=== PATIENT | male | born 1950 | race Caucasian/White ===

== ENCOUNTER 2022-02-06 01:31 | Emergency (ER) | payer MEDICAID ==
[~2022-02-06] VITALS: Ht 170.2 cm; Wt 72.6 kg
[2022-02-06 02:00] VITALS: BP_SYST 134
[2022-02-06] MEDS ORDERED: ASPI-1393 PO (02:11)
[2022-02-06] MEDS ORDERED: LIP20 PO (02:11)
[2022-02-06] MEDS ORDERED: CLOP75TA32 PO (02:11)
[2022-02-06 02:30] LABS: BASOPHILS # (AUTO) 0.1 K/uL (0.0-0.2); BASOPHILS % (AUTO) 1.1 % (0.0-2.0); EOSINOPHILS # (AUTO) 0.2 K/uL (0.0-0.4); EOSINOPHILS % (AUTO) 1.9 % (0.0-4.0); HEMATOCRIT 39.4 % (36-54); HEMOGLOBIN 13.3 g/dL (14.0-18.0); LYMPHOCYTES # (AUTO) 1.8 K/uL (1.0-5.5); MEAN CORPUSCULAR HEMOGLOBIN 29 pg (27-31); MEAN CORPUSCULAR HGB CONC 34 % (32-36); MEAN CORPUSCULAR VOLUME 85 fL (79.0-98.0); MONOCYTES # (AUTO) 0.8 K/uL (0.0-1.0); MONOCYTES % (AUTO) 8.8 % (1.7-9.3); NEUTROPHILS # (AUTO) 6.6 K/uL (1.8-7.7); NEUTROPHILS % (AUTO) 69.2 % (40.0-70.0); PLATELET COUNT (AUTO) 282 K/uL (130-430); RED BLOOD CELL COUNT(AUTO) 4.64 MIL/uL (4.2-6.2); RED CELL DISTRIBUTION WIDTH 14.1 % (9.0-15.0); WHITE BLOOD COUNT (AUTO) 9.5 K/uL (4.8-10.8)
[2022-02-06 02:44] LABS: ANION GAP 7 (5-15); CALCIUM 9.7 mg/dL (8.4-11.0); CHLORIDE 102 mmol/L (98-107); CREATININE 1.12 mg/dL (0.55-1.30); GLUCOSE 192 mg/dL (70-99); UREA NITROGEN, BLOOD 23 mg/dL (8-21)
[2022-02-06 02:46] LABS: GFR AFRICAN AMERICAN 84 mL/min (>90)
[2022-02-06 02:51] LABS: ALANINE AMINOTRANSFERASE 31 U/L (12-78); ALBUMIN 4.3 g/dL (3.4-4.8); ASPARTATE AMINOTRANSFERASE 27 U/L (10-37); TOTAL BILIRUBIN 0.6 mg/dL (0.0-1.0)
[2022-02-06 03:02] LABS: ACETAMINOPHEN < 1 ug/mL (1-30); ALCOHOL, BLOOD < 3 mg/dL (<10)
[2022-02-06 03:17] LABS: BILIRUBIN,URINE NEGATIVE (NEGATIVE); BLOOD, URINE NEGATIVE (NEGATIVE); COLOR,URINE YELLOW (YELLOW); GLUCOSE,URINE 2+ (NEGATIVE); KETONES,URINE TRACE (NEGATIVE); LEUKOCYTE ESTERASE ,URINE NEGATIVE (NEGATIVE); NITRITE, URINE NEGATIVE (NEGATIVE); PH,URINE 5.5 (5.0-8.0); PROTEIN URINE TRACE (NEGATIVE); UROBILINOGEN,URINE 0.2 (0.2-1.0)
[2022-02-06 03:24] LABS: PROTHROMBIN TIME 10.3 SECS (9.5-12.5)
[2022-02-06 03:27] LABS: CLARITY/URINE HAZY (CLEAR)
[2022-02-06 03:37] LABS: BACTERIA,URINE None Seen /HPF (None Seen); MUCUS,URINE 1+ /LPF (None Seen); RBC,URINE 0-3 /HPF (0-3); WBC,URINE 0-3 /HPF (0-3)
[2022-02-06] MEDS ORDERED: levETIRAcetam 1,000 MG in NS 90 ML IV ONE (05:15)
[2022-02-06] MEDS ORDERED: DESMOPRESSIN ACETATE 4 MCG/ML AMP IV ONE (05:15)
[2022-02-06 07:05] VITALS: BP_SYST 126
== END 2022-02-06 07:05 | disposition short-term general hospital (02) ==
LOC: SED 01:31
DX: I62.00 Nontraumatic subdural hemorrhage, unspecified (principal); R05.9 Cough, unspecified; R41.82 Altered mental status, unspecified; I10 Essential (primary) hypertension; I25.2 Old myocardial infarction; Z88.1 Allergy status to other antibiotic agents; Z79.899 Other long term (current) drug therapy; Z20.822 Contact with and (suspected) exposure to COVID-19
CPT/HCPCS: 99291; 70450; 71045; 87426; 80053; 82140; 85025; 85610; 85730; 36415; 76376; 81000; J2597; G0482; J1953; G0480; G0481; 99283